=== PATIENT | female | born 1990 | race Caucasian/White ===

== ENCOUNTER 2021-10-29 14:30 | Emergency (ER) | payer MEDICAID ==
[~2021-10-29] VITALS: Ht 170.2 cm; Wt 77.0 kg
[2021-10-29 14:43] VITALS: BP 146/80
[2021-10-29] MEDS ORDERED: IBUP-2029 PO (18:13)
== END 2021-10-29 18:48 | disposition home or self-care (01) ==
LOC: ER 14:30
DX: M79.645 Pain in left finger(s) (principal)
CPT/HCPCS: 73130; 99283

== ENCOUNTER 2022-09-30 09:50 | Emergency (ER) | payer MEDICAID ==
[~2022-09-30] VITALS: Ht 162.6 cm; Wt 81.8 kg
[~2022-09-30 09:50] MED LIST: IBUP-2029 PO
[2022-09-30] MEDS ORDERED: NAPR-681 MT (11:15)
[2022-09-30 11:56] VITALS: BP 132/80
== END 2022-09-30 11:57 | disposition home or self-care (01) ==
LOC: ER 09:50
DX: S76.311A Strain of muscle, fascia and tendon of the posterior muscle group at thigh level, right thigh, initial encounter (principal); Z88.8 Allergy status to other drugs, medicaments and biological substances; X50.9XXA Other and unspecified overexertion or strenuous movements or postures, initial encounter; Y93.89 Activity, other specified; Y92.89 Other specified places as the place of occurrence of the external cause; Y99.8 Other external cause status
CPT/HCPCS: 99282